=== PATIENT | female | born 1945 | race Hispanic/Latino ===

== ENCOUNTER 2019-07-25 13:44 | Emergency (ER) | payer OTHER ==
[2019-07-25 14:46] LABS: BASOPHILS % (AUTO) 0.8 % (0.0-5.0); EOSINOPHILS % (AUTO) 2.1 % (0.0-8.0); HEMATOCRIT 41.4 % (36-48); LYMPHOCYTES % (AUTO) 18.5 % (21.0-51.0); MEAN CORPUSCULAR HEMOGLOBIN 31.8 pg (27.0-33.0); MEAN CORPUSCULAR HGB CONC 34.1 g/dL (32.0-36.0); MEAN CORPUSCULAR VOLUME 93.5 fL (79-99); MONOCYTES % (AUTO) 6.8 % (3.0-13.0); NEUTROPHILS % (AUTO) 71.5 % (40.0-77.0); PLATELET COUNT (AUTO) 172 K/uL (130-400); RED BLOOD CELL COUNT(AUTO) 4.43 MIL/uL (4.00-5.50); WHITE BLOOD COUNT (AUTO) 7.5 K/uL (4.8-10.8)
[2019-07-25 15:02] LABS: INR 1.01 (0.85-1.15); PARTIAL THROMBOPLASTIN TIME 24.5 SEC (26.3-35.5); PROTHROMBIN TIME 10.6 SEC (9.6-11.6)
[2019-07-25 15:45] LABS: POTASSIUM 3.3 mmol/L (3.5-5.1)
[2019-07-25 15:49] LABS: ALBUMIN 3.1 g/dL (3.5-5.0); BILIRUBIN,DIRECT 0.4 mg/dL (0.0-0.3); BILIRUBIN,TOTAL 1.7 mg/dL (0.2-1.0); TOTAL PROTEIN, SERUM 7.5 g/dL (6.0-8.3)
[2019-07-25] MEDS ORDERED: MECLIZINE HCL 25 MG TABLET ONE (16:02)
[2019-07-25] MEDS ORDERED: ONDANSETRON HCL 4 MG/2 ML VIAL ONE (16:03)
== END 2019-07-25 18:32 | disposition home or self-care (01) ==
LOC: EDH 13:44
DX: H81.399 Other peripheral vertigo, unspecified ear (principal); G44.89 Other headache syndrome; R11.2 Nausea with vomiting, unspecified; I10 Essential (primary) hypertension; E11.9 Type 2 diabetes mellitus without complications; R79.1 Abnormal coagulation profile; Z90.49 Acquired absence of other specified parts of digestive tract; Z98.890 Other specified postprocedural states
CPT/HCPCS: 36415; 70450; 70551; 71045; 80048; 80076; 82550; 83605; 84484; 85025; 85610; 85730; 93005; 96374; 99284; J2405

== ENCOUNTER → 2019-08-12 | Outpatient (CLI) | payer OTHER | END | disposition home or self-care (01) | LOC: SLP 20:06 | PROVIDERS: ATTEND Family Medicine | DX: G47.33 Obstructive sleep apnea (adult) (pediatric) (principal); I10 Essential (primary) hypertension; E11.9 Type 2 diabetes mellitus without complications | CPT/HCPCS: 95810 ==

== ENCOUNTER → 2019-09-02 | Outpatient (CLI) | payer OTHER | END | disposition home or self-care (01) | LOC: SLP 19:38 | PROVIDERS: ATTEND Family Medicine | DX: G47.33 Obstructive sleep apnea (adult) (pediatric) (principal) | CPT/HCPCS: 95811 ==

== ENCOUNTER 2019-11-26 02:41 | Emergency (ER) | payer OTHER ==
[2019-11-26] MEDS ORDERED: SODIUM CHLORIDE 0.9% 1000ML 1,000 ML IV ONE (02:42)
[2019-11-26] MEDS ORDERED: ONDANSETRON HCL 4 MG/2 ML VIAL ONE (03:10)
[2019-11-26 03:17] LABS: BASOPHILS % (AUTO) 0.7 % (0.0-5.0); EOSINOPHILS % (AUTO) 2.1 % (0.0-8.0); HEMATOCRIT 38.3 % (36-48); LYMPHOCYTES % (AUTO) 18.2 % (21.0-51.0); MEAN CORPUSCULAR HEMOGLOBIN 33.2 pg (27.0-33.0); MEAN CORPUSCULAR HGB CONC 35.8 g/dL (32.0-36.0); MEAN CORPUSCULAR VOLUME 92.7 fL (79-99); MONOCYTES % (AUTO) 7.2 % (3.0-13.0); NEUTROPHILS % (AUTO) 71.5 % (40.0-77.0); PLATELET COUNT (AUTO) 146 K/uL (130-400); RED BLOOD CELL COUNT(AUTO) 4.13 MIL/uL (4.00-5.50); RED CELL DISTRIBUTION WIDTH 12.9 % (11.0-15.5); WHITE BLOOD COUNT (AUTO) 9.2 K/uL (4.8-10.8)
[2019-11-26 03:22] LABS: CREATININE 1.2 mg/dL (0.5-1.5); POTASSIUM 3.1 mmol/L (3.5-5.1)
[2019-11-26 03:28] LABS: TOTAL PROTEIN, SERUM 7.2 g/dL (6.0-8.3)
[2019-11-26 03:41] LABS: B-TYPE NATRIURETIC PEPTIDE 19 pg/mL (0-100)
[2019-11-26 03:42] LABS: INR 0.96 (0.85-1.15); PARTIAL THROMBOPLASTIN TIME 23.6 SEC (26.3-35.5); PROTHROMBIN TIME 10.4 SEC (9.6-11.6)
[2019-11-26] MEDS ORDERED: DiphenhydrAMINE HCL 50 MG/ML VIAL ONE (03:49)
[2019-11-26 04:22] LABS: APPEARANCE,URINE CLEAR (CLEAR); BILIRUBIN,URINE NEGATIVE (NEGATIVE); COLOR,URINE YELLOW (YELLOW); GLUCOSE, URINE (UA) NEGATIVE (NEGATIVE); KETONES,URINE NEGATIVE (NEGATIVE); LEUKOCYTE ESTERASE ,URINE SMALL (NEGATIVE); NITRATE,URINE POSITIVE (NEGATIVE); OCCULT BLOOD,URINE TRACE-INTACT (NEGATIVE); PH,URINE 6.5 (5.0-8.0); PROTEIN,URINE NEGATIVE (NEGATIVE)
[2019-11-26 04:46] LABS: BACTERIA,URINE Moderate /HPF (None Seen); RBC,URINE 0-1 /HPF (0-1)
[2019-11-26] MEDS ORDERED: CEFTRIAXONE SODIUM 1 GM ONE (05:32)
[2019-11-26] MEDS ORDERED: MECLIZINE HCL 25 MG TABLET ONE (05:32)
== END 2019-11-26 06:24 | disposition home or self-care (01) ==
LOC: EDH 02:41
DX: H81.10 Benign paroxysmal vertigo, unspecified ear (principal); E86.9 Volume depletion, unspecified; R82.71 Bacteriuria; E11.9 Type 2 diabetes mellitus without complications; I10 Essential (primary) hypertension; Z98.890 Other specified postprocedural states; Z90.49 Acquired absence of other specified parts of digestive tract
CPT/HCPCS: 36415; 70450; 71045; 80053; 81001; 82550; 83880; 84484; 85025; 85610; 85730; 87077; 87088; 87186; 93005; 96361; 96374; 96375; 99284; J0696; J1200; J2405; J7030

== ENCOUNTER 2023-05-17 10:33 | Emergency (ER) | payer OTHER ==
[~2023-05-17] VITALS: Ht 167.6 cm; Wt 74.8 kg
[~2023-05-17 10:33] MED LIST: FAMO20TA8 PO; HYDR25TA PO; KETO120S13 TP; LACT PO; LATA2.5D14 OU; LEVO750T68 PO; LISI1TAB51 PO; METF-444 PO; POLY10DR5 OP; SERT-439 PO; TIMO.5OS OU
[2023-05-17 11:00] LABS: BASOPHILS # (AUTO) 0.04 K/uL (0.00-0.20); BASOPHILS % (AUTO) 0.6 % (0.0-5.0); EOSINOPHILS % (AUTO) 1.4 % (0.0-8.0); IMMATURE GRANULOCYTE ABSOLUTE 0.03 K/uL (0-1); LYMPHOCYTES # (AUTO) 1.2 K/uL (1.0-4.8); LYMPHOCYTES % (AUTO) 17.3 % (21.0-51.0); MEAN CORPUSCULAR HEMOGLOBIN 33.2 pg (27.0-33.0); MEAN CORPUSCULAR HGB CONC 34.8 g/dL (32.0-36.0); MEAN CORPUSCULAR VOLUME 95.4 fL (79-99); MONOCYTES # (AUTO) 0.7 K/uL (0.1-1.0); MONOCYTES % (AUTO) 9.6 % (3.0-13.0); NEUTROPHILS % (AUTO) 70.7 % (40.0-77.0); PLATELET COUNT (AUTO) 135 K/uL (130-400); RED BLOOD CELL COUNT(AUTO) 3.46 MIL/uL (4.00-5.50); RED CELL DISTRIBUTION WIDTH 13.6 % (11.0-15.5)
[2023-05-17] MEDS ORDERED: LACT10SO9 PO ×2 (11:02→12:11)
[2023-05-17] MEDS ORDERED: PANT40TA54 PO (11:09)
[2023-05-17] MEDS ORDERED: LISI1TAB53 PO (11:09)
[2023-05-17] MEDS ORDERED: AEC81 PO (11:09)
[2023-05-17] MEDS ORDERED: FLUO20CA36 PO (11:09)
[2023-05-17] MEDS ORDERED: ERGO500093 PO (11:09)
[2023-05-17] MEDS ORDERED: METF-444 PO (11:09)
[2023-05-17 11:11] LABS: CREATININE 1.4 mg/dL (0.5-1.5); POTASSIUM 4.2 mmol/L (3.5-5.1)
[2023-05-17 11:16] LABS: ALBUMIN 2.7 g/dL (3.5-5.0); BILIRUBIN,TOTAL 3.4 mg/dL (0.2-1.0); TOTAL PROTEIN, SERUM 7.3 g/dL (6.0-8.3)
[2023-05-17 11:58] LABS: APPEARANCE,URINE CLEAR (CLEAR); BILIRUBIN,URINE NEGATIVE (NEGATIVE); COLOR,URINE LIGHT-YELLOW (YELLOW); GLUCOSE, URINE (UA) NEGATIVE (NEGATIVE); KETONES,URINE NEGATIVE (NEGATIVE); LEUKOCYTE ESTERASE ,URINE NEGATIVE Leu/uL (NEGATIVE); NITRATE,URINE NEGATIVE (NEGATIVE); OCCULT BLOOD,URINE NEGATIVE (NEGATIVE); PH,URINE 6.5 (5.0-8.0); PROTEIN,URINE NEGATIVE (NEGATIVE); UROBILINOGEN,URINE 6 mg/dL (0.2-1.0)
[2023-05-17 11:59] LABS: ADD UA MICROSCOPIC YES
[2023-05-17 12:00] LABS: BACTERIA,URINE RARE /HPF (None Seen); MUCUS,URINE RARE LPF (None Seen); SQUAMOUS EPITHELIAL CELL,UR RARE /HPF (0-2); WBC,URINE 0-1 /HPF (0-1)
[2023-05-17 12:28] LABS: INR 1.02 (0.85-1.15); PROTHROMBIN TIME 11.8 SEC (9.6-11.6)
[2023-05-17 12:29] LABS: PARTIAL THROMBOPLASTIN TIME 25.6 SEC (26.3-35.5)
[2023-05-17] MEDS ORDERED: LACTULOSE 20 GM/30 ML UDCUP PO ONE (12:30)
[2023-05-17 12:56] LABS: INFLUENZA TYPE A Negative For Type A (NEGATIVE); INFLUENZA TYPE B Negative For Type B (NEGATIVE)
[2023-05-17 12:57] LABS: COVID19 (SARS ANTIGEN RAPID) PRESUMPTIVE NEGATIVE (NEGATIVE)
[2023-05-17 15:49] VITALS: BP 158/72; PULSE 66; RESP 20; O2SAT 98
== END 2023-05-17 15:50 | disposition home or self-care (01) ==
LOC: EDH 10:33
DX: K74.60 Unspecified cirrhosis of liver (principal); E72.29 Other disorders of urea cycle metabolism; R53.1 Weakness; E11.9 Type 2 diabetes mellitus without complications; E78.00 Pure hypercholesterolemia, unspecified; I10 Essential (primary) hypertension; Z79.82 Long term (current) use of aspirin; Z79.84 Long term (current) use of oral hypoglycemic drugs; Z79.899 Other long term (current) drug therapy; Z20.822 Contact with and (suspected) exposure to COVID-19
CPT/HCPCS: 36415; 80053; 81001; 82140; 85025; 85610; 85730; 87426; 87804; 93005

== ENCOUNTER 2023-09-10 09:12 | Inpatient (IN) | payer OTHER ==
[~2023-09-10] VITALS: Ht 154.9 cm; Wt 92.5 kg
[~2023-09-10 09:12] MED LIST changes: +AEC81 PO; +ERGO500093 PO; -FAMO20TA8 PO; +FLUO20CA36 PO; -HYDR25TA PO; -KETO120S13 TP; -LACT PO; +LACT10SO9 PO; -LEVO750T68 PO; -LISI1TAB51 PO; +LISI1TAB53 PO; +PANT40TA54 PO; -POLY10DR5 OP
[2023-09-10 09:39] LABS: BASOPHILS # (AUTO) 0.06 K/uL (0.00-0.20); BASOPHILS % (AUTO) 0.7 % (0.0-5.0); EOSINOPHILS # (AUTO) 0.18 K/uL (0.00-0.70); EOSINOPHILS % (AUTO) 2.1 % (0.0-8.0); HEMATOCRIT 33.8 % (36-48); IMMATURE GRANULOCYTE ABSOLUTE 0.04 K/uL (0-1); LYMPHOCYTES # (AUTO) 2.3 K/uL (1.0-4.8); LYMPHOCYTES % (AUTO) 26.1 % (21.0-51.0); MEAN CORPUSCULAR HEMOGLOBIN 33.4 pg (27.0-33.0); MEAN CORPUSCULAR HGB CONC 34.6 g/dL (32.0-36.0); MEAN CORPUSCULAR VOLUME 96.6 fL (79-99); MONOCYTES # (AUTO) 0.6 K/uL (0.1-1.0); MONOCYTES % (AUTO) 7.4 % (3.0-13.0); NEUTROPHILS # (AUTO) 5.5 K/uL (1.8-7.7); NEUTROPHILS % (AUTO) 63.2 % (40.0-77.0); PLATELET COUNT (AUTO) 151 K/uL (130-400); RED CELL DISTRIBUTION WIDTH 13.9 % (11.0-15.5); WHITE BLOOD COUNT (AUTO) 8.7 K/uL (4.8-10.8)
[2023-09-10 09:50] LABS: CREATININE 1.4 mg/dL (0.5-1.5); POTASSIUM 3.4 mmol/L (3.5-5.1)
[2023-09-10 09:56] LABS: ALBUMIN 2.6 g/dL (3.5-5.0); BILIRUBIN,TOTAL 2.1 mg/dL (0.2-1.0); TOTAL PROTEIN, SERUM 7.2 g/dL (6.0-8.3)
[2023-09-10] MEDS: ALBUTEROL 0.083% 2.5 MG/3 ML INH IH ONE (10:07)
[2023-09-10 10:10] VITALS: PULSE 80; RESP 18
[2023-09-10 10:22] LABS: COVID19 (SARS ANTIGEN RAPID) PRESUMPTIVE NEGATIVE (NEGATIVE); INFLUENZA TYPE A Negative For Type A (NEGATIVE); INFLUENZA TYPE B Negative For Type B (NEGATIVE)
[2023-09-10 11:03] LABS: APPEARANCE,URINE CLOUDY (CLEAR); BILIRUBIN,URINE NEGATIVE (NEGATIVE); COLOR,URINE YELLOW (YELLOW); GLUCOSE, URINE (UA) NEGATIVE (NEGATIVE); KETONES,URINE NEGATIVE (NEGATIVE); LEUKOCYTE ESTERASE ,URINE NEGATIVE Leu/uL (NEGATIVE); NITRATE,URINE NEGATIVE (NEGATIVE); OCCULT BLOOD,URINE NEGATIVE (NEGATIVE); PH,URINE 6.5 (5.0-8.0); PROTEIN,URINE NEGATIVE (NEGATIVE); UROBILINOGEN,URINE 3 mg/dL (0.2-1.0)
[2023-09-10 11:15] LABS: ADD UA MICROSCOPIC YES
[2023-09-10 11:17] LABS: BACTERIA,URINE MANY /HPF (None Seen); MUCUS,URINE RARE LPF (None Seen); SQUAMOUS EPITHELIAL CELL,UR RARE /HPF (0-2)
[2023-09-10] MEDS ORDERED: ONDANSETRON 4MG INJ IVP PRN (13:00)
[2023-09-10] MEDS ORDERED: POTASSIUM CHLORIDE 20MEQ/100ML 100 ML IV PRN (13:00)
[2023-09-10] MEDS ORDERED: ACETAMINOPHEN 325 MG TAB PO PRN (13:00)
[2023-09-10] MEDS: CEFTRIAXONE 1G VIAL IVPB SCH (13:52)
[2023-09-10] MEDS ORDERED: LACTULOSE 20 GM/30 ML UDCUP PO PRN (15:00)
[2023-09-10] MEDS: POTASSIUM CHLORIDE 10% ELIXIR 20 MEQ/15 ML UDCUP PO PRN (17:29)
[2023-09-10] MEDS: LACTULOSE 20 GM/30 ML UDCUP PO SCH (17:30)
[2023-09-10 20:00] VITALS: BP 147/64; PULSE 78; RESP 20; O2SAT 97
[2023-09-10] MEDS: RIFAXIMIN 550 MG TABLET PO SCH (20:07)
[2023-09-11] VITALS (9 sets, daily range): BP systolic 115–139; BP diastolic 60–76; PULSE 63–79; RESP 16–21; O2SAT 98–100
[2023-09-11 09:00] LABS: BASOPHILS # (AUTO) 0.05 K/uL (0.00-0.20); BASOPHILS % (AUTO) 0.8 % (0.0-5.0); EOSINOPHILS % (AUTO) 3.1 % (0.0-8.0); HEMATOCRIT 33.1 % (36-48); IMMATURE GRANULOCYTE ABSOLUTE 0.01 K/uL (0-1); LYMPHOCYTES # (AUTO) 1.8 K/uL (1.0-4.8); LYMPHOCYTES % (AUTO) 27.5 % (21.0-51.0); MEAN CORPUSCULAR HEMOGLOBIN 33.7 pg (27.0-33.0); MEAN CORPUSCULAR VOLUME 96.2 fL (79-99); MONOCYTES # (AUTO) 0.6 K/uL (0.1-1.0); MONOCYTES % (AUTO) 9.7 % (3.0-13.0); NEUTROPHILS # (AUTO) 3.8 K/uL (1.8-7.7); NEUTROPHILS % (AUTO) 58.7 % (40.0-77.0); PLATELET COUNT (AUTO) 120 K/uL (130-400); RED BLOOD CELL COUNT(AUTO) 3.44 MIL/uL (4.00-5.50); RED CELL DISTRIBUTION WIDTH 14.2 % (11.0-15.5); WHITE BLOOD COUNT (AUTO) 6.5 K/uL (4.8-10.8)
[2023-09-11 09:14] LABS: ALBUMIN 2.5 g/dL (3.5-5.0); BILIRUBIN,TOTAL 2.4 mg/dL (0.2-1.0); CREATININE 1.4 mg/dL (0.5-1.5); POTASSIUM 3.5 mmol/L (3.5-5.1); TOTAL PROTEIN, SERUM 7.1 g/dL (6.0-8.3)
[2023-09-11] MEDS ORDERED: SERTRALINE HCL 50 MG TABLET PO SCH (21:00)
[2023-09-11] MEDS: SERTRALINE HCL 50 MG TABLET PO SCH (21:17)
[2023-09-11] MEDS: LATANOPROST 2.5 ML DROPS OU SCH (21:18)
[2023-09-11] MEDS: TIMOLOL MALEATE 0.5% 5 ML BOTTLE OU SCH (21:18)
[2023-09-12] VITALS (8 sets, daily range): BP systolic 111–137; BP diastolic 50–65; PULSE 67–75; RESP 16–21; O2SAT 98
[2023-09-12 05:42] LABS: BASOPHILS # (AUTO) 0.06 K/uL (0.00-0.20); BASOPHILS % (AUTO) 0.9 % (0.0-5.0); EOSINOPHILS # (AUTO) 0.23 K/uL (0.00-0.70); EOSINOPHILS % (AUTO) 3.3 % (0.0-8.0); IMMATURE GRANULOCYTE ABSOLUTE 0.02 K/uL (0-1); MEAN CORPUSCULAR HEMOGLOBIN 33.5 pg (27.0-33.0); MEAN CORPUSCULAR HGB CONC 34.2 g/dL (32.0-36.0); MEAN CORPUSCULAR VOLUME 97.9 fL (79-99); MONOCYTES # (AUTO) 0.7 K/uL (0.1-1.0); MONOCYTES % (AUTO) 9.7 % (3.0-13.0); NEUTROPHILS % (AUTO) 56.8 % (40.0-77.0); PLATELET COUNT (AUTO) 119 K/uL (130-400); RED BLOOD CELL COUNT(AUTO) 3.37 MIL/uL (4.00-5.50); RED CELL DISTRIBUTION WIDTH 14.3 % (11.0-15.5)
[2023-09-12 06:00] LABS: ALBUMIN 2.3 g/dL (3.5-5.0); BILIRUBIN,TOTAL 1.7 mg/dL (0.2-1.0); CREATININE 1.5 mg/dL (0.5-1.5); MAGNESIUM 1.8 mg/dL (1.80-2.40); POTASSIUM 3.8 mmol/L (3.5-5.1); TOTAL PROTEIN, SERUM 6.5 g/dL (6.0-8.3)
[2023-09-12] MEDS: LISINOPRIL 20 MG TABLET PO SCH (10:05)
[2023-09-12] MEDS: MAGNESIUM 2GM PREMIX 50ML 50 ML IV PRN (10:05)
[2023-09-12] MEDS: PANTOPRAZOLE 40 MG TAB DR PO SCH (10:05)
[2023-09-12] MEDS: ASPIRIN 81 MG EC TAB PO SCH (10:05)
[2023-09-13] VITALS (7 sets, daily range): BP systolic 97–112; BP diastolic 40–64; PULSE 69–76; RESP 17–21; O2SAT 97–99
[2023-09-13 05:28] LABS: BASOPHILS # (AUTO) 0.06 K/uL (0.00-0.20); BASOPHILS % (AUTO) 0.8 % (0.0-5.0); EOSINOPHILS # (AUTO) 0.27 K/uL (0.00-0.70); EOSINOPHILS % (AUTO) 3.5 % (0.0-8.0); HEMATOCRIT 30.6 % (36-48); IMMATURE GRANULOCYTE ABSOLUTE 0.03 K/uL (0-1); LYMPHOCYTES # (AUTO) 2.4 K/uL (1.0-4.8); LYMPHOCYTES % (AUTO) 30.8 % (21.0-51.0); MEAN CORPUSCULAR HEMOGLOBIN 33.6 pg (27.0-33.0); MEAN CORPUSCULAR HGB CONC 35.3 g/dL (32.0-36.0); MEAN CORPUSCULAR VOLUME 95.3 fL (79-99); MONOCYTES # (AUTO) 0.7 K/uL (0.1-1.0); MONOCYTES % (AUTO) 8.8 % (3.0-13.0); NEUTROPHILS # (AUTO) 4.3 K/uL (1.8-7.7); NEUTROPHILS % (AUTO) 55.7 % (40.0-77.0); PLATELET COUNT (AUTO) 121 K/uL (130-400); RED BLOOD CELL COUNT(AUTO) 3.21 MIL/uL (4.00-5.50); RED CELL DISTRIBUTION WIDTH 13.8 % (11.0-15.5); WHITE BLOOD COUNT (AUTO) 7.8 K/uL (4.8-10.8)
[2023-09-13 05:57] LABS: ALBUMIN 2.2 g/dL (3.5-5.0); BILIRUBIN,TOTAL 1.6 mg/dL (0.2-1.0); CREATININE 1.3 mg/dL (0.5-1.5); MAGNESIUM 2.1 mg/dL (1.80-2.40); POTASSIUM 3.8 mmol/L (3.5-5.1); TOTAL PROTEIN, SERUM 6.3 g/dL (6.0-8.3)
[2023-09-13] MEDS: KCL 20 MEQ ERTAB PO PRN (10:44)
[2023-09-14] VITALS: BP 113/59; PULSE 72; RESP 18
[2023-09-14 04:00] VITALS: BP 101/54; PULSE 65; RESP 18
[2023-09-14 05:07] LABS: BASOPHILS # (AUTO) 0.08 K/uL (0.00-0.20); BASOPHILS % (AUTO) 1.2 % (0.0-5.0); EOSINOPHILS # (AUTO) 0.27 K/uL (0.00-0.70); EOSINOPHILS % (AUTO) 4.1 % (0.0-8.0); HEMATOCRIT 30.3 % (36-48); IMMATURE GRANULOCYTE ABSOLUTE 0.02 K/uL (0-1); LYMPHOCYTES % (AUTO) 30.4 % (21.0-51.0); MEAN CORPUSCULAR HGB CONC 34.7 g/dL (32.0-36.0); MEAN CORPUSCULAR VOLUME 98.1 fL (79-99); MONOCYTES # (AUTO) 0.7 K/uL (0.1-1.0); MONOCYTES % (AUTO) 10.1 % (3.0-13.0); NEUTROPHILS # (AUTO) 3.5 K/uL (1.8-7.7); NEUTROPHILS % (AUTO) 53.9 % (40.0-77.0); RED BLOOD CELL COUNT(AUTO) 3.09 MIL/uL (4.00-5.50); WHITE BLOOD COUNT (AUTO) 6.6 K/uL (4.8-10.8)
[2023-09-14 05:15] LABS: CREATININE 1.7 mg/dL (0.5-1.5)
[2023-09-14 05:19] LABS: ALBUMIN 2.1 g/dL (3.5-5.0); BILIRUBIN,TOTAL 1.3 mg/dL (0.2-1.0); MAGNESIUM 2.2 mg/dL (1.80-2.40); TOTAL PROTEIN, SERUM 6.1 g/dL (6.0-8.3)
[2023-09-14 05:40] LABS: PLATELET COUNT (AUTO) 84 K/uL (130-400)
[2023-09-14 08:00] VITALS: BP 105/49; PULSE 60; RESP 18; O2SAT 100
[2023-09-14 12:00] VITALS: BP 99/57; PULSE 70; RESP 20
[2023-09-14 16:00] VITALS: BP 120/61; PULSE 74; RESP 20
[2023-09-14 20:00] VITALS: BP 107/61; PULSE 80; RESP 18; O2SAT 92
[2023-09-15] VITALS (8 sets, daily range): BP systolic 75–127; BP diastolic 34–65; PULSE 60–73; RESP 16–20; O2SAT 98–99
[2023-09-15 05:19] LABS: BASOPHILS # (AUTO) 0.06 K/uL (0.00-0.20); BASOPHILS % (AUTO) 0.8 % (0.0-5.0); EOSINOPHILS % (AUTO) 4.1 % (0.0-8.0); HEMATOCRIT 29.2 % (36-48); IMMATURE GRANULOCYTE ABSOLUTE 0.03 K/uL (0-1); LYMPHOCYTES % (AUTO) 26.8 % (21.0-51.0); MEAN CORPUSCULAR HEMOGLOBIN 33.6 pg (27.0-33.0); MEAN CORPUSCULAR HGB CONC 34.6 g/dL (32.0-36.0); MONOCYTES # (AUTO) 0.8 K/uL (0.1-1.0); MONOCYTES % (AUTO) 10.8 % (3.0-13.0); NEUTROPHILS # (AUTO) 4.2 K/uL (1.8-7.7); NEUTROPHILS % (AUTO) 57.1 % (40.0-77.0); PLATELET COUNT (AUTO) 140 K/uL (130-400); RED BLOOD CELL COUNT(AUTO) 3.01 MIL/uL (4.00-5.50); RED CELL DISTRIBUTION WIDTH 14.2 % (11.0-15.5); WHITE BLOOD COUNT (AUTO) 7.3 K/uL (4.8-10.8)
[2023-09-15 05:42] LABS: ALBUMIN 2.1 g/dL (3.5-5.0); BILIRUBIN,TOTAL 1.1 mg/dL (0.2-1.0); CREATININE 1.8 mg/dL (0.5-1.5); MAGNESIUM 2.2 mg/dL (1.80-2.40); POTASSIUM 3.8 mmol/L (3.5-5.1); TOTAL PROTEIN, SERUM 6.1 g/dL (6.0-8.3)
[2023-09-16] VITALS (7 sets, daily range): BP systolic 91–105; BP diastolic 47–53; PULSE 55–77; RESP 16–18; O2SAT 98–100
[2023-09-16] MEDS: CEFTRIAXONE 1G VIAL IVPB SCH (11:31)
[2023-09-17] VITALS (9 sets, daily range): BP systolic 96–122; BP diastolic 50–65; PULSE 54–68; RESP 16–20; O2SAT 100
[2023-09-17 06:04] LABS: MEAN CORPUSCULAR HEMOGLOBIN 33.7 pg (27.0-33.0); MEAN CORPUSCULAR HGB CONC 34.7 g/dL (32.0-36.0); MEAN CORPUSCULAR VOLUME 97.1 fL (79-99); RED BLOOD CELL COUNT(AUTO) 3.09 MIL/uL (4.00-5.50); RED CELL DISTRIBUTION WIDTH 14.5 % (11.0-15.5); WHITE BLOOD COUNT (AUTO) 6.7 K/uL (4.8-10.8)
[2023-09-17 06:11] LABS: CREATININE 1.8 mg/dL (0.5-1.5); POTASSIUM 3.8 mmol/L (3.5-5.1)
[2023-09-18] VITALS (7 sets, daily range): BP systolic 94–124; BP diastolic 39–66; PULSE 60–102; RESP 18–20; O2SAT 100
[2023-09-18 05:12] LABS: BASOPHILS # (AUTO) 0.06 K/uL (0.00-0.20); EOSINOPHILS % (AUTO) 4.9 % (0.0-8.0); HEMATOCRIT 29.1 % (36-48); IMMATURE GRANULOCYTE ABSOLUTE 0.02 K/uL (0-1); LYMPHOCYTES # (AUTO) 1.9 K/uL (1.0-4.8); LYMPHOCYTES % (AUTO) 30.9 % (21.0-51.0); MEAN CORPUSCULAR HEMOGLOBIN 33.9 pg (27.0-33.0); MEAN CORPUSCULAR HGB CONC 33.7 g/dL (32.0-36.0); MEAN CORPUSCULAR VOLUME 100.7 fL (79-99); MONOCYTES # (AUTO) 0.6 K/uL (0.1-1.0); NEUTROPHILS # (AUTO) 3.2 K/uL (1.8-7.7); NEUTROPHILS % (AUTO) 52.9 % (40.0-77.0); PLATELET COUNT (AUTO) 132 K/uL (130-400); RED BLOOD CELL COUNT(AUTO) 2.89 MIL/uL (4.00-5.50); RED CELL DISTRIBUTION WIDTH 14.3 % (11.0-15.5); WHITE BLOOD COUNT (AUTO) 6.1 K/uL (4.8-10.8)
[2023-09-18 05:30] LABS: BILIRUBIN,TOTAL 1.1 mg/dL (0.2-1.0); CREATININE 1.5 mg/dL (0.5-1.5); MAGNESIUM 1.8 mg/dL (1.80-2.40); POTASSIUM 3.9 mmol/L (3.5-5.1); TOTAL PROTEIN, SERUM 5.7 g/dL (6.0-8.3)
[2023-09-18] MEDS: CLOTRIMAZOLE 30 GM CREAM.GM. TP SCH (21:00)
[2023-09-19] VITALS (7 sets, daily range): BP systolic 99–123; BP diastolic 40–58; PULSE 52–67; RESP 16–18; O2SAT 100
[2023-09-19 06:21] LABS: BASOPHILS # (AUTO) 0.06 K/uL (0.00-0.20); EOSINOPHILS # (AUTO) 0.26 K/uL (0.00-0.70); EOSINOPHILS % (AUTO) 4.5 % (0.0-8.0); HEMATOCRIT 30.4 % (36-48); IMMATURE GRANULOCYTE ABSOLUTE 0.02 K/uL (0-1); LYMPHOCYTES # (AUTO) 1.8 K/uL (1.0-4.8); LYMPHOCYTES % (AUTO) 30.7 % (21.0-51.0); MEAN CORPUSCULAR HEMOGLOBIN 34.2 pg (27.0-33.0); MEAN CORPUSCULAR HGB CONC 33.9 g/dL (32.0-36.0); MONOCYTES # (AUTO) 0.6 K/uL (0.1-1.0); MONOCYTES % (AUTO) 10.1 % (3.0-13.0); NEUTROPHILS # (AUTO) 3.1 K/uL (1.8-7.7); NEUTROPHILS % (AUTO) 53.4 % (40.0-77.0); PLATELET COUNT (AUTO) 97 K/uL (130-400); RED BLOOD CELL COUNT(AUTO) 3.01 MIL/uL (4.00-5.50); RED CELL DISTRIBUTION WIDTH 14.4 % (11.0-15.5); WHITE BLOOD COUNT (AUTO) 5.8 K/uL (4.8-10.8)
[2023-09-19 06:33] LABS: ALBUMIN 2.1 g/dL (3.5-5.0); BILIRUBIN,TOTAL 1.2 mg/dL (0.2-1.0); CREATININE 1.7 mg/dL (0.5-1.5); MAGNESIUM 2.2 mg/dL (1.80-2.40); POTASSIUM 3.9 mmol/L (3.5-5.1)
[2023-09-20 03:00] VITALS: BP 93/44; PULSE 61; RESP 18
[2023-09-20 05:19] LABS: BASOPHILS # (AUTO) 0.05 K/uL (0.00-0.20); BASOPHILS % (AUTO) 0.8 % (0.0-5.0); EOSINOPHILS # (AUTO) 0.23 K/uL (0.00-0.70); EOSINOPHILS % (AUTO) 3.7 % (0.0-8.0); HEMATOCRIT 30.6 % (36-48); IMMATURE GRANULOCYTE ABSOLUTE 0.01 K/uL (0-1); LYMPHOCYTES # (AUTO) 1.9 K/uL (1.0-4.8); LYMPHOCYTES % (AUTO) 30.9 % (21.0-51.0); MEAN CORPUSCULAR HEMOGLOBIN 33.1 pg (27.0-33.0); MEAN CORPUSCULAR VOLUME 100.3 fL (79-99); MONOCYTES # (AUTO) 0.6 K/uL (0.1-1.0); MONOCYTES % (AUTO) 10.1 % (3.0-13.0); NEUTROPHILS # (AUTO) 3.3 K/uL (1.8-7.7); NEUTROPHILS % (AUTO) 54.3 % (40.0-77.0); PLATELET COUNT (AUTO) 125 K/uL (130-400); RED BLOOD CELL COUNT(AUTO) 3.05 MIL/uL (4.00-5.50); RED CELL DISTRIBUTION WIDTH 14.1 % (11.0-15.5); WHITE BLOOD COUNT (AUTO) 6.1 K/uL (4.8-10.8)
[2023-09-20 05:46] LABS: ALBUMIN 2.1 g/dL (3.5-5.0); BILIRUBIN,TOTAL 1.2 mg/dL (0.2-1.0); CREATININE 1.4 mg/dL (0.5-1.5); POTASSIUM 4.1 mmol/L (3.5-5.1); TOTAL PROTEIN, SERUM 6.1 g/dL (6.0-8.3)
[2023-09-20 08:00] VITALS: BP 112/58; PULSE 60; RESP 20
[2023-09-20 12:00] VITALS: BP 90/51; PULSE 63; RESP 18
[2023-09-20 16:00] VITALS: BP 102/56; PULSE 74; RESP 20
[2023-09-20 19:00] VITALS: BP 107/53; PULSE 65; RESP 20
[2023-09-20] MEDS: CLOBETASOL PROPIONATE 0.05% CR 60 GM CRM TP SCH (20:50)
[2023-09-20 23:00] VITALS: BP 100/34; PULSE 70; RESP 20
[2023-09-21] VITALS (7 sets, daily range): BP systolic 82–108; BP diastolic 40–57; PULSE 62–68; RESP 18–21; O2SAT 98–100
[2023-09-22] VITALS (7 sets, daily range): BP systolic 100–110; BP diastolic 46–60; PULSE 59–68; RESP 15–20; O2SAT 98
[2023-09-23] VITALS (7 sets, daily range): BP systolic 92–142; BP diastolic 50–68; PULSE 65–79; RESP 17–20; O2SAT 99–100
[2023-09-23 05:07] LABS: BASOPHILS # (AUTO) 0.04 K/uL (0.00-0.20); BASOPHILS % (AUTO) 0.6 % (0.0-5.0); EOSINOPHILS # (AUTO) 0.24 K/uL (0.00-0.70); EOSINOPHILS % (AUTO) 3.8 % (0.0-8.0); HEMATOCRIT 29.3 % (36-48); IMMATURE GRANULOCYTE ABSOLUTE 0.01 K/uL (0-1); LYMPHOCYTES # (AUTO) 1.7 K/uL (1.0-4.8); MEAN CORPUSCULAR HEMOGLOBIN 33.7 pg (27.0-33.0); MEAN CORPUSCULAR HGB CONC 33.4 g/dL (32.0-36.0); MEAN CORPUSCULAR VOLUME 100.7 fL (79-99); MONOCYTES # (AUTO) 0.5 K/uL (0.1-1.0); MONOCYTES % (AUTO) 8.5 % (3.0-13.0); NEUTROPHILS # (AUTO) 3.9 K/uL (1.8-7.7); NEUTROPHILS % (AUTO) 60.9 % (40.0-77.0); PLATELET COUNT (AUTO) 114 K/uL (130-400); RED BLOOD CELL COUNT(AUTO) 2.91 MIL/uL (4.00-5.50); RED CELL DISTRIBUTION WIDTH 14.3 % (11.0-15.5); WHITE BLOOD COUNT (AUTO) 6.3 K/uL (4.8-10.8)
[2023-09-23 05:33] LABS: BILIRUBIN,TOTAL 1.1 mg/dL (0.2-1.0); CREATININE 1.5 mg/dL (0.5-1.5); MAGNESIUM 1.8 mg/dL (1.80-2.40); POTASSIUM 4.1 mmol/L (3.5-5.1); TOTAL PROTEIN, SERUM 5.9 g/dL (6.0-8.3)
[2023-09-23] MEDS: LISINOPRIL 10 MG TABLET PO SCH (08:39)
[2023-09-24 03:46] VITALS: BP 117/51; PULSE 61; RESP 17
[2023-09-24 06:08] LABS: HEMATOCRIT 29.6 % (36-48); MEAN CORPUSCULAR HEMOGLOBIN 33.6 pg (27.0-33.0); MEAN CORPUSCULAR HGB CONC 33.8 g/dL (32.0-36.0); MEAN CORPUSCULAR VOLUME 99.3 fL (79-99); RED BLOOD CELL COUNT(AUTO) 2.98 MIL/uL (4.00-5.50); RED CELL DISTRIBUTION WIDTH 14.1 % (11.0-15.5); WHITE BLOOD COUNT (AUTO) 6.5 K/uL (4.8-10.8)
[2023-09-24 06:18] LABS: CREATININE 1.5 mg/dL (0.5-1.5); MAGNESIUM 1.8 mg/dL (1.80-2.40); POTASSIUM 3.9 mmol/L (3.5-5.1)
[2023-09-24 08:00] VITALS: BP 158/75; PULSE 65; RESP 20
[2023-09-24 10:24] VITALS: O2SAT 100
[2023-09-24 12:00] VITALS: BP 125/61; PULSE 66; RESP 20
[2023-09-24 16:00] VITALS: BP 122/62; PULSE 65; RESP 18
== END 2023-09-24 18:29 | DRG 872 ==
LOC: EDH 09:12 → EDHIP 13:09 → 3DH 15:59
PROVIDERS: ADMIT Internal Medicine Infectious Disease; ATTEND Internal Medicine Infectious Disease
DX: A41.50 Gram-negative sepsis, unspecified (principal); N39.0 Urinary tract infection, site not specified; Z20.822 Contact with and (suspected) exposure to COVID-19; K74.60 Unspecified cirrhosis of liver; K76.82 Hepatic encephalopathy; E11.9 Type 2 diabetes mellitus without complications; G47.33 Obstructive sleep apnea (adult) (pediatric); E87.6 Hypokalemia; B96.1 Klebsiella pneumoniae [K. pneumoniae] as the cause of diseases classified elsewhere; R53.81 Other malaise; E66.01 Morbid (severe) obesity due to excess calories; F32.A Depression, unspecified; B35.8 Other dermatophytoses; H91.93 Unspecified hearing loss, bilateral; I10 Essential (primary) hypertension; Z83.3 Family history of diabetes mellitus; Z87.440 Personal history of urinary (tract) infections; Z68.38 Body mass index [BMI] 38.0-38.9, adult; Z79.84 Long term (current) use of oral hypoglycemic drugs
CPT/HCPCS: 36415; 71045; 80048; 80053; 81001; 82140; 82948; 83605; 83690; 83735; 84484; 85025; 85027; 87077; 87088; 87186; 87420; 87426; 87804; 87880; 93005; 94640; G0378; J0696; J3475

== ENCOUNTER 2024-07-24 09:46 | Observation (INO) | payer OTHER, MEDICARE ==
[~2024-07-24] VITALS: Ht 170.2 cm; Wt 109.0 kg
[~2024-07-24 09:46] MED LIST changes: +FLUO-418 PO; -FLUO20CA36 PO; +FURO40TA5 PO; -METF-444 PO; +RIFA550T PO; -SERT-439 PO; -TIMO.5OS OU
[2024-07-24 10:10] LABS: BASOPHILS # (AUTO) 0.03 K/uL (0.00-0.20); BASOPHILS % (AUTO) 0.5 % (0.0-5.0); EOSINOPHILS # (AUTO) 0.19 K/uL (0.00-0.70); EOSINOPHILS % (AUTO) 3.1 % (0.0-8.0); HEMATOCRIT 34.2 % (36-48); IMMATURE GRANULOCYTE ABSOLUTE 0.01 K/uL (0-1); LYMPHOCYTES # (AUTO) 1.8 K/uL (1.0-4.8); LYMPHOCYTES % (AUTO) 28.5 % (21.0-51.0); MEAN CORPUSCULAR HEMOGLOBIN 32.1 pg (27.0-33.0); MEAN CORPUSCULAR HGB CONC 33.6 g/dL (32.0-36.0); MEAN CORPUSCULAR VOLUME 95.5 fL (79-99); MONOCYTES # (AUTO) 0.6 K/uL (0.1-1.0); MONOCYTES % (AUTO) 9.7 % (3.0-13.0); NEUTROPHILS # (AUTO) 3.6 K/uL (1.8-7.7); PLATELET COUNT (AUTO) 125 K/uL (130-400); RED BLOOD CELL COUNT(AUTO) 3.58 MIL/uL (4.00-5.50); RED CELL DISTRIBUTION WIDTH 14.9 % (11.0-15.5); WHITE BLOOD COUNT (AUTO) 6.2 K/uL (4.8-10.8)
--- NOTE | 2024-07-24 10:11 | EKG ---
[facility] Test Date: 2024-07-24 Test Time: 10:07:33 Pat Name: NAPOLEON IGLESIAS Department: [facility] Room: ED Gender: F Legal Support Assistant: [id number] : 1945 Requested By: IVETTE WOODS Order Number: [id number] Reading MD: Jason Chaparro Measurements Intervals [place] Rate: 77 P: 62 MT: 144 QRS: 65 QRSD: 104 T: 9 QT: 442 QTc: 499 Interpretive Statements Sinus rhythm Compared to ECG 05/19/2024 17:08:31 Myocardial infarct finding no longer present Electronically Signed On 07-24-2024 12:24:52 VOCATIONAL EXAMINER by Jason Chaparro Please click the below link to view image of tracing.
[2024-07-24 10:15] LABS: CREATININE 1.3 mg/dL (0.5-1.0); POTASSIUM 4.7 mmol/L (3.5-5.1)
--- NOTE | 2024-07-24 10:26 | ERN ---
ED Note History of Present Illness Stated Complaint: AMS Chief Complaint: Altered Mental Status Time Seen by MD: 09:47 Dictation: This is a case of a 78-year-old female with a past medical history of depression, liver cirrhosis who was brought to the ER by EMS with complaints of altered mental status. According to the EMS the patient had several similar episodes in the past secondary to high serum ammonia levels. Patient is drowsy, opens eyes on touch, making incoherent sounds with the Estela coma scale approximately 11. Allergies: Coded Allergies: No Known Drug Allergies (Unverified Allergy, Unknown, 11/26/19) Home Meds Active Scripts Sulfamethoxazole/Trimethoprim (Bactrim Ds Tablet) 800 Mg-160 Mg Tablet, 1 TAB PO BID for 7 Days, #14 TAB 0 Refills Prov:MARILYN JEAN 07/25/24 Lactulose (Lactulose) 20 Gram/30 Ml Solution, 20 GM PO TID, #60 ML 2 Refills Prov:RADHA ALDANA 05/17/23 Reported Medications Rifaximin (Xifaxan) 550 Mg Tablet, 1 TAB PO BID 02/26/24 Furosemide (Furosemide) 40 Mg Tablet, 1 TAB PO DAILY 02/26/24 Fluoxetine HCl (Fluoxetine HCl) 20 Mg Capsule, 20 MG PO DAILY, CAP 05/17/23 Pantoprazole Sodium (Pantoprazole Sodium) 40 Mg Tablet.dr, 40 MG PO DAILY, TAB 05/17/23 Discontinued Reported Medications Lisinopril/Hydrochlorothiazide (Lisinopril-Hctz 20-25 mg Tab) 20 Mg-25 Mg Tablet, 1 EACH PO DAILY, TAB 05/17/23 Ergocalciferol (Vitamin D2) (Vitamin D2) 1,250 Mcg (68254 Unit) Capsule, 1250 MCG PO QWEEK, CAP 05/17/23 Aspirin (ASPIRIN 81 MG ECTAB) 81 Mg Ectab, 81 MG PO DAILY, TAB.EC 05/17/23 Latanoprost (Latanoprost) 2.5 Ml Drops, 1 DROP OU HS 03/11/23 Past Medical History Past Medical History: Depression, Other Additional Past Medical Hx: LIVER CIRRHOSIS Surgical History: Unknown Social History: Negative Review of System Dictation ROS Constitutional: No appetite loss, No fevers, chills , No night sweats, No weakness, fatigue Eye: No vision change, No redness, pain or discharge ENT: No hearing loss, ear pain or discharge, No nose bleeds, No sore throat, Neck: No swelling. pain or stiffness Respiratory: No cough, shortness of breath, wheezing Cardiovascular: No chest pain,, palpitations, dyspnea, No edema Gastrointestinal: No abdominal pain, No nausea, vomiting, No diarrhea, constipation Genitourinary: No painful urination, No blood in urine, No urinary incontinence, No frequency or urgency Musculoskeletal: No joint pain, muscle pain, swelling or stiffness Neurological: No numbness, tingling, No weakness, tremors or seizures Psychiatric: : No depression, No anxiety, No sleep disturbance, No Memory changes Lymphatic: No easy bruising, No bleeding tendencies , No swollen lymph nodes A 13-point Review of Systems was assessed, all of which are negative except for HPI or as indicated above. Not able to get a proper history from the patient due to altered mental state Initial Vital Sign VS Vital Signs Date Time Temp Pulse Resp B/P (MAP) Pulse Ox O2 Delivery O2 Flow Rate FiO2 07/24/24 09:58 98.4 79 16 158/83 100 Room Air 0 07/24/24 09:59 21 Physical Exam Dictation General: Drowsy, No acute distress. EENT: No conjunctival redness or discharge noted Tympanic membranes are clear, Normal hearing, Oral mucosa is moist, No pharyngeal erythema, No nasal discharge, No oral lesions. Neck: Non-tender, No jugular vein distention, No lymphadenopathy, No thyromegaly, Supple. Respiratory: Mild bilateral crackles, Respirations are non-labored, Breath sounds are equal, No chest wall tenderness, Cardiovascular: Normal rate, Normal rhythm, No murmur, Good pulses equal in all extremities, Normal peripheral perfusion, bilateral lower extremity pitting edema Gastrointestinal: Soft, Non-tender, Non-distended, Normal bowel sounds Musculoskeletal: Normal range of motion, Normal strength, No tenderness, No swelling, No deformity, Normal gait. Neurologic: Drowsy Results (Laboratory/Radiology) Laboratory/Radiology Laboratory Tests Test 07/24/24 09:57 07/24/24 10:51 07/24/24 12:31 07/24/24 16:24 White Blood Count 6.2 K/uL (4.8-10.8) Red Blood Count 3.58 MIL/uL (4.00-5.50) L Hemoglobin 11.5 g/dL (12.0-16.0) L Hematocrit 34.2 % (36-48) L Mean Corpuscular Volume 95.5 fL (79-99) Mean Corpuscular Hemoglobin 32.1 pg (27.0-33.0) Mean Corpuscular Hemoglobin Concent 33.6 g/dL (32.0-36.0) Red Cell Distribution Width 14.9 % (11.0-15.5) Platelet Count 125 K/uL (130-400) L Mean Platelet Volume 9.5 fL (7.5-10.5) Immature Granulocyte % (Auto) 0.2 % (0-1) Neutrophils (%) (Auto) 58.0 % (40.0-77.0) Lymphocytes (%) (Auto) 28.5 % (21.0-51.0) Monocytes (%) (Auto) 9.7 % (3.0-13.0) Eosinophils (%) (Auto) 3.1 % (0.0-8.0) Basophils (%) (Auto) 0.5 % (0.0-5.0) Neutrophils # (Auto) 3.6 K/uL (1.8-7.7) Lymphocytes # (Auto) 1.8 K/uL (1.0-4.8) Monocytes # (Auto) 0.6 K/uL (0.1-1.0) Eosinophils # (Auto) 0.19 K/uL (0.00-0.70) Basophils # (Auto) 0.03 K/uL (0.00-0.20) Absolute Immature Granulocyte (auto 0.01 K/uL (0-1) Nucleated Red Blood Cells 0.0 % (0.0-0.19) Sodium Level 143 mmol/L (136-145) Potassium Level 4.7 mmol/L (3.5-5.1) Chloride Level 108 mmol/L (101-111) Carbon Dioxide Level 31 mmol/L (21-32) Blood Urea Nitrogen 21 mg/dL (7-18) H Creatinine 1.3 mg/dL (0.5-1.0) H Glomerular Filtration Rate Calc 43 mL/min (>90) Random Glucose 104 mg/dL (70-105) Total Calcium 9.6 mg/dL (8.5-10.1) Total Bilirubin 2.7 mg/dL (0.2-1.0) H Direct Bilirubin 0.3 mg/dL (0.0-0.3) Aspartate Amino Transf (AST/SGOT) 58 U/L (10-37) H Alanine Aminotransferase (ALT/SGPT) 23 U/L (12-78) Alkaline Phosphatase 223 U/L (50-136) H Ammonia 124 umol/L (11-32) *H Troponin I High Sensitivity 16 ng/L (4-50) 16.1 ng/L (4-50) B-Type Natriuretic Peptide 119 pg/mL (0-100) H Total Protein 7.2 g/dL (6.0-8.3) Albumin 2.6 g/dL (3.5-5.0) L Influenza Type A Antigen Negative For Type A Influenza Type B Antigen Negative For Type B SARS-CoV-2 Antigen (Rapid) PRESUMPTIVE NEGATIVE Group A Streptococcus Rapid negative (NEGATIVE) Total Creatine Kinase 89 U/L (21-232) # Whole Blood Glucose 87 MG/DL (70-110) Test 07/24/24 17:50 07/24/24 20:19 07/24/24 23:49 07/25/24 03:27 Total Creatine Kinase 84 U/L (21-232) 77 U/L (21-232) Troponin I High Sensitivity 19.0 ng/L (4-50) 22.2 ng/L (4-50) Whole Blood Glucose 158 MG/DL (70-110) #H Urine Color YELLOW (YELLOW) Urine Appearance CLOUDY (CLEAR) H Urine pH 6.0 (5.0-8.0) Urine Specific [place] 1.020 (1.001-1.031) Urine Protein 10 mg/dL (NEGATIVE) H Urine Glucose (UA) NEGATIVE mg/dL (NEGATIVE) Urine Ketones NEGATIVE mg/dL (NEGATIVE) Urine Occult Blood MODERATE (NEGATIVE) H Urine Nitrate NEGATIVE (NEGATIVE) Urine Bilirubin NEGATIVE mg/dL (NEGATIVE) Urine Urobilinogen 0.2 mg/dL (0.2-1.0) Urine Leukocyte Esterase 250 Adan/uL (NEGATIVE) H Urine RBC 6-10 /HPF (0-1) H Urine WBC 26-50 /HPF (0-1) H Urine Squamous Epithelial Cells MOD /HPF (0-2) Urine Bacteria RARE /HPF (None Seen) Urine Opiates Screen NEGATIVE (NEGATIVE) Urine Barbiturates Screen NEGATIVE (NEGATIVE) Urine Phencyclidine Screen NEGATIVE (NEGATIVE) Urine Amphetamines Screen NEGATIVE (NEGATIVE) Urine Benzodiazepines Screen NEGATIVE (NEGATIVE) Urine Cocaine Screen NEGATIVE (NEGATIVE) Urine Marijuana (THC) Screen NEGATIVE (NEGATIVE) Test 07/25/24 04:56 07/25/24 05:38 07/25/24 11:48 Whole Blood Glucose 98 MG/DL (70-110) 157 MG/DL (70-110) #H White Blood Count 5.6 K/uL (4.8-10.8) Red Blood Count 3.46 MIL/uL (4.00-5.50) L Hemoglobin 11.0 g/dL (12.0-16.0) L Hematocrit 34.0 % (36-48) L Mean Corpuscular Volume 98.3 fL (79-99) Mean Corpuscular Hemoglobin 31.8 pg (27.0-33.0) Mean Corpuscular Hemoglobin Concent 32.4 g/dL (32.0-36.0) Red Cell Distribution Width 14.9 % (11.0-15.5) Platelet Count 112 K/uL (130-400) L Mean Platelet Volume 9.2 fL (7.5-10.5) Immature Granulocyte % (Auto) 0.4 % (0-1) Neutrophils (%) (Auto) 56.7 % (40.0-77.0) Lymphocytes (%) (Auto) 24.7 % (21.0-51.0) Monocytes (%) (Auto) 11.8 % (3.0-13.0) Eosinophils (%) (Auto) 5.5 % (0.0-8.0) Basophils (%) (Auto) 0.9 % (0.0-5.0) Neutrophils # (Auto) 3.2 K/uL (1.8-7.7) Lymphocytes # (Auto) 1.4 K/uL (1.0-4.8) Monocytes # (Auto) 0.7 K/uL (0.1-1.0) Eosinophils # (Auto) 0.31 K/uL (0.00-0.70) Basophils # (Auto) 0.05 K/uL (0.00-0.20) Absolute Immature Granulocyte (auto 0.02 K/uL (0-1) Nucleated Red Blood Cells 0.0 % (0.0-0.19) Prothrombin Time 11.5 SEC (9.6-11.6) Prothromb Time International Ratio 1.03 (0.85-1.15) Phosphorus Level 3.1 mg/dL (2.5-4.9) Magnesium Level 2.00 mg/dL (1.80-2.40) Ammonia 47 umol/L (11-32) #H Lactate Dehydrogenase 244 U/L (81-234) H B-Type Natriuretic Peptide 189 pg/mL (0-100) H Procalcitonin 0.07 ng/mL (0.05-0.5) EKG Comment: PROCEDURE: EKG - 12 LEAD EKG TRACING- TECHNICAL [facility] Test Date: 2024-07-24 Test Time: 10:07:33 Pat Name: NAPOLEON IGLESIAS Department: [facility] Room: Gender: Female Help Desk Support Specialist: [id number] : 1945 Requested By: IVETTE WOODS Order Number: [id number] Reading MD: Measurements Intervals [place] Rate: 77 P: 62 HI: 144 QRS: 65 QRSD: 104 T: 9 QT: 442 QTc: 499 Interpretive Statements Sinus rhythm No previous ECG available for comparison X-RAY Comment: PROCEDURE: CXR1VW - CHEST 1VW CHEST 1VW REASON: wheezing COMPARISON: 05/19/2024 FINDINGS: There is myocardial megaly. There is pulmonary vascular congestion. Peripheral portions of the lungs are clear. B stomach and bony thorax appear unremarkable. IMPRESSION: 1. Cardiomegaly with mild pulmonary vascular congestion. CT Scan Comment: PROCEDURE: HEAD WO - CT HEAD/BRAIN W/O CONTRAST Exam: NONCONTRAST CT BRAIN REASON: Altered mental status. COMPARISON: 02/25/2024 TECHNIQUE: Images are obtained from vertex to the skull base. The exam was performed without IV contrast. FINDINGS: There are generous ventricles and sulci. There is decreased attenuation in the deep central white matter. These findings are consistent with atrophy. There are no acute appearing focal parenchymal lesions. There is no evidence of mass, intracranial hemorrhage or acute stroke. Posterior fossa and brainstem structures appear unremarkable. There are no abnormal fluid collections. Extra cranial soft tissues appear unremarkable as well. IMPRESSION: 1. Atrophy, no acute finding. CT was performed with one or more following dose reduction techniques: automated exposure control, adjustment of the mA and kv according to patient's size, or use of a iterative reconstruction technique. ED Course ED Course Orders Procedure Category Date Status Time Cbc With Differential LAB 07/24/24 Complete 09:58 Basic Metabolic Panel LAB 07/24/24 Complete 09:58 Troponin I High LAB 07/24/24 Complete Sensitivity 09:58 Ammonia LAB 07/24/24 Complete 09:58 Hepatic Function Panel LAB 07/24/24 Complete 10:01 Chest 1vw RAD 07/24/24 Resulted 10:01 12 Lead Ekg Tracing- EKG 07/24/24 Resulted Technical 10:01 Ct Head/Brain W/O CT 07/24/24 Resulted Contrast 10:01 B-Type Natriuretic LAB 07/24/24 Complete Peptide 09:58 Lactulose 20 Gm/30 Ml PHA 07/24/24 Complete Udcup (Constulose 10:30 Vital Signs Every 4 CPOE 07/24/24 Transmitted Hours 10:35 Daily Weights CPOE 07/24/24 Transmitted 10:35 I&O Q Shift CPOE 07/24/24 Transmitted 10:35 Cbc With Differential LAB 07/25/24 Complete 04:00 Magnesium LAB 07/25/24 Complete 04:00 Phosphorus LAB 07/25/24 Complete 04:00 Procalcitonin LAB 07/25/24 Complete 04:00 Lactate Dehydrogenase LAB 07/25/24 Complete 04:00 Prothrombin Time With LAB 07/25/24 Complete INR 04:00 Cardiac Panel LAB 07/24/24 Complete 10:35 Cardiac Panel LAB 07/24/24 Complete 16:35 Cardiac Panel LAB 07/24/24 Complete 22:35 Ammonia LAB 07/25/24 Complete 04:00 B-Type Natriuretic LAB 07/25/24 Complete Peptide 04:00 Folic Acid 1 Mg PHA 07/25/24 In Process Tablet (Folic Acid 1 09:00 Thiamine Hcl (Vitamin PHA 07/25/24 In Process B-1) 09:00 Lactulose 20 Gm/30 Ml PHA 07/24/24 In Process Udcup (Constulose 11:00 Apply Scds CPOE 07/24/24 Transmitted 10:35 Admit Orders ADM 07/24/24 Transmitted 10:35 Condition: CPOE 07/24/24 Transmitted 10:35 Initiate ERWIN 07/24/24 In Process Hyperglycemia Protoco 10:35 Chest 1vw RAD 07/25/24 Resulted 06:00 Pantoprazole 40mg Inj PHA 07/24/24 In Process (Protonix 40mg Inj 21:00 Lactulose 20 Gm/30 Ml PHA 07/24/24 Complete Udcup (Constulose 11:00 Influenza Type A & B, LAB 07/24/24 Complete Rapid 10:43 Covid19 (Sars Antigen LAB 07/24/24 Complete Rapid) 10:43 Rapid (Group A Strep) LAB 07/24/24 Complete 10:43 Ceftriaxone 2gm Vial PHA 07/24/24 In Process (Rocephin 2gm Inj) 11:00 Furosemide 40 Mg PHA 07/25/24 In Process Tablet (Lasix 40mg 09:00 Rifaximin (Xifaxan) PHA 07/24/24 In Process 21:00 Admit Orders ADM 07/24/24 Transmitted 10:47 Urinalysis Profile LAB 07/24/24 Complete 17:16 Culture Urine CATARINA 07/24/24 In Process 17:21 Fall Precautions CPOE 07/24/24 Transmitted 17:30 Aspiration Precautions CPOE 07/24/24 Transmitted 17:30 Heart Healthy Diet DIET 07/25/24 Transmitted Breakfast Neuro Checks Q4x24, CPOE 07/24/24 Transmitted Then Qs 17:43 Ondansetron 4mg Inj PHA 07/24/24 In Process (Zofran 4mg Inj) 18:00 Pt Eval And Treat PT 07/24/24 Transmitted 17:45 Case Management 07/24/24 Transmitted Evaluation 17:45 Drug Screen Urine LAB 07/24/24 Complete 17:16 Us Abd Limited/Abd US 07/24/24 Resulted Wall 17:29 *General Dc DS 07/25/24 Transmitted Instructions 14:16 *Nursing CPOE 07/25/24 Transmitted Communication: 15:37 Change To Observation CM 07/25/24 Transmitted Status 16:11 Current Medications Medications (Trade) Dose Ordered Sig/Aby Route PRN Reason Start Time Stop Time Status Last Admin Dose Admin Lactulose (Constulose 20gm/ 30ml Udcup) 20 gm ONCE ONCE PO 07/24/24 10:30 07/24/24 10:31 DC Vital Signs Date Time Temp Pulse Resp B/P (MAP) Pulse Ox O2 Delivery O2 Flow Rate FiO2 07/25/24 12:00 98.4 69 20 138/61 100 Room Air 07/25/24 08:40 97 Room Air* 0 07/25/24 08:00 98.4 64 20 154/69 97 Room Air 07/25/24 04:22 97.9 64 20 138/77 99 Room Air 07/24/24 23:54 98.8 67 19 147/68 100 Room Air 07/24/24 20:35 98.1 77 20 151/71 100 Room Air 07/24/24 20:00 Room Air* 0 07/24/24 16:00 98.4 72 19 142/72 100 Room Air 07/24/24 13:20 94 Room Air* 0 07/24/24 13:20 97.9 72 19 153/76 100 Room Air 07/24/24 12:37 98.4 76 18 152/71 98 Room Air* 0 07/24/24 09:59 76 18 161/72 99 Room Air* 0 07/24/24 09:58 98.4 79 16 158/83 100 Room Air 0 Medical Decision Making [facility] MDM Potential differential diagnoses include: Metabolic encephalopathy Uremia Electrolyte disturbances Intracranial hemorrhage UTI Pneumonia Assessment: I will order a CBC and CMP and administer medications according to the patient's complaint. Will order CT head, chest x-ray, EKG. I will re-evaluate the patient after treatment and diagnostic exams have returned to determine whether they require further testing, can be safely discharged home, or need admission for further treatment and evaluation. Given the social determinants of health affecting care, including literacy, access to medical care, prescription drug management, and [id number] drugs, I will ensure that treatment plans are tailored accordingly. Revaluation : Patient is drowsy. Labs hemoglobin 11.5, BUN 21, creatinine 1.3, AST 58, alkaline phosphatase 223. Ammonia level is 124. Chest x-ray resulted in cardiomegaly with mild pulmonary congestion. CT head resulted in no acute findings. EKG resulted in sinus rhythm. Disposition: Patient will be admitted for further workup and management in view of hepatic encephalopathy and LIVAN. DX & DISP Disposition: Inpatient Departure Impression: Primary Impression: Hepatic encephalopathy Additional Impression: Hyperammonemia Critical Time: 30 minutes (Critical Care Procedure NoteAuthorized and Performed by: meTotal critical care time: Approximately 36 minutesDue to a high probability of clinically significant, life threatening deterioration, the patient required my highest level of preparedness to intervene emergently and I personally spent this critical care time directly and personally managing the patient. This critical care time included obtaining a history; examining the patient; pulse oximetry; ordering and review of studies; arranging urgent treatment with development of a management plan; evaluation of patient's response to treatment; frequent reassessment; and, discussions with other providers.This critical care time was performed to assess and manage the high probability of imminent, life-threatening deterioration that could result in multi-organ failure. It was exclusive of separately billable procedures and treating other patients and teaching time.Please see MDM section and the rest of the note for further information on patient assessment and treatment.) Condition: Stable Scripts Sulfamethoxazole/Trimethoprim (Bactrim Ds Tablet) 800 Mg-160 Mg Tablet 1 TAB PO BID for 7 Days, #14 TAB 0 Refills Prov: MARILYN JEAN 07/25/24 Referrals: KAMLESH GAGNON MD (PCP) ATTESTATION BY PHYSICIAN I performed a substantive portion of the visit. I have reviewed and personally made and approve the management plan that is documented in the notes by myself with MAX/resident. I acknowledged full responsibility for the patient's management plan. 78-year-old female brought in by EMS with a GCS of 11, altered mental status of unknown etiology. History cirrhosis, suspicion for hepatic encephalopathy. Found to have elevated ammonia. Started on lactulose. Rest of the workup is unremarkable. Admitted. IVETTE TOUSSAINT MD Jul 24, 2024 10:25 CATRACHITO MATHEWS DO Jul 25, 2024 17:15
[2024-07-24 10:27] LABS: ALBUMIN 2.6 g/dL (3.5-5.0); BILIRUBIN,DIRECT 0.3 mg/dL (0.0-0.3); BILIRUBIN,TOTAL 2.7 mg/dL (0.2-1.0); TOTAL PROTEIN, SERUM 7.2 g/dL (6.0-8.3)
[2024-07-24 10:52] LABS: B-TYPE NATRIURETIC PEPTIDE 119 pg/mL (0-100)
--- NOTE | 2024-07-24 10:56 | HMCIMG ---
Exam: NONCONTRAST CT BRAIN REASON: Altered mental status. COMPARISON: 02/25/2024 TECHNIQUE: Images are obtained from vertex to the skull base. The exam was performed without IV contrast. FINDINGS: There are generous ventricles and sulci. There is decreased attenuation in the deep central white matter. These findings are consistent with atrophy. There are no acute appearing focal parenchymal lesions. There is no evidence of mass, intracranial hemorrhage or acute stroke. Posterior fossa and brainstem structures appear unremarkable. There are no abnormal fluid collections. Extra cranial soft tissues appear unremarkable as well. IMPRESSION: 1. Atrophy, no acute finding. CT was performed with one or more following dose reduction techniques: automated exposure control, adjustment of the mA and kv according to patient's size, or use of a iterative reconstruction technique.
--- NOTE | 2024-07-24 10:57 | HMCIMG ---
CHEST 1VW REASON: wheezing COMPARISON: 05/19/2024 FINDINGS: There is myocardial megaly. There is pulmonary vascular congestion. Peripheral portions of the lungs are clear. B stomach and bony thorax appear unremarkable. IMPRESSION: 1. Cardiomegaly with mild pulmonary vascular congestion.
[2024-07-24] MEDS: LACTULOSE 20 GM/30 ML UDCUP PO SCH (11:00)
[2024-07-24 11:26] LABS: RAPID GROUP A STREP negative (NEGATIVE)
[2024-07-24 11:39] LABS: COVID19 (SARS ANTIGEN RAPID) PRESUMPTIVE NEGATIVE (NEGATIVE)
[2024-07-24 11:46] LABS: INFLUENZA TYPE A Negative For Type A (NEGATIVE); INFLUENZA TYPE B Negative For Type B (NEGATIVE)
[2024-07-24] MEDS: LACTULOSE 20 GM/30 ML UDCUP PO ONE (11:47)
[2024-07-24] MEDS: CEFTRIAXONE 2GM VIAL IVPB SCH (11:48)
[2024-07-24] MEDS: LACTULOSE 20 GM/30 ML UDCUP PR ONE (11:48)
[2024-07-24 13:20] VITALS: BP 153/76; PULSE 72; RESP 19; TEMP 97.9; O2SAT 94
--- NOTE | 2024-07-24 13:20 | NUR ---
ARRIVAL PATIENT ARRIVED TO FLOOR VIA STRETCHER. NO S/S OF DISTRESS NOTED. PATIENT WITH EYES CLOSED, UNABLE TO FOLLOW COMMANDS AT THIS TIME. HOME MEDICATIONS ENTERED. PENDING RECONCILIATION. NO FAMILY AT BEDSIDE. ORDERS TO BE REVIEWED AND CARRIED OUT.
[2024-07-24 16:00] VITALS: BP 142/72; PULSE 72; RESP 19; TEMP 98.4
--- NOTE | 2024-07-24 17:11 | HP ---
[facility] HISTORY & PHYSICAL Date Patient Seen: Jul 24, 2024 Time of Visit: 14:00 Supervising Physician: Derek Brewer MD (Covering for Dr Ambriz) Primary Care Physician: Dr Giuliano Doshi MD Outpatient Specialists: Inpatient Consults: PROBLEM LIST: Acute on chronic hepatic encephalopathy, POA Hyperammonemia Liver cirrhosis Essential Hypertension Normocytic chronic anemia Chronic Thrombocytopenia Debility CKD stage 3 Morbid obesity Suspected undiagnosed and untreated SHAKIRA/ OHS Stage I diastolic heart failure with EF of 60-65% on 2D echo 03/11/23, not on exacerbation Hepatic steatosis Ascites HPI: This is a morbidly obese chronically ill female with a past medical history of liver cirrhosis, chronic thrombocytopenia, hepatic encephalopathy, debility, f requent UTIs, essential hypertension and CKD stage 3 who arrived to the emergency department for evaluation of altered mental status. On arrival to the emergency department blood pressure was 158/83 with a heart rate 76 respiratory rate of 16 unlabored saturating 100% on room air temperature 98.4 and GCS of 11. CT of the head was done and atrophy with no acute findings. Chest x-ray was performed in the ED and showed cardiomegaly with mild pulmonary vascular congestion. Initial lab work showed negative troponin x2. H&H of 11.5/34.2 platelet count of 125k consistent with her chronic thrombocytopenia. Chemistry BUN 21 creatinine 1.3 GFR of 43 which is consistent to previous findings consistent with a CKD stage 3. Total bili was 2.7 AST 58 alkaline phosphatase 223 with a ammonia level of 124 albumin of 2.6. Serology showed influenza A negative for influenza B negative COVID-19 negative and group a strep rapid negative. Per ED physician we will like patient admitted for encephalopathy. On assessment patient was sleeping but easily arousable to voice, she is able to follow commands but is confused. GCS of 13. She has been slightly hypertensive with a blood pressure of 153/76 heart rate in the 70s saturating 94% on room air in no apparent distress afebrile. Unable to get a history from patient due to confusion. As per daughter who was at bedside at the time of my visit patient is on lactulose 20 g 3 times a day and rifaximin at home but the last couple of days she has been refusing to take her medication. She is not sure if she has been taking it correctly. Today she was brought in due to increased altered mental status. Per daughter this is what happens when her ammonia goes up. Daughter denies patient being sick lately. She denies patient having ascites or previous paracentesis. Admit patient to medical-surgical with plans of improving ammonia levels, empirically we will cover for SBP, difficult to assess ascites due to her body habitus therefore we will order ultrasound of the abdomen to assess for ascites. PAST MEDICAL HX: UTI Hepatic encephalopathy facial dermatophytosis Debility Thrombocytopenia Liver cirrhosis Hypertension CKD stage 3 PAST SURGICAL HX: Cholecystectomy section SOCIAL HISTORY: No tobacco, ETOH, or illicit drug use Coded Allergies: No Known Drug Allergies (Unverified Allergy, Unknown, 11/26/19) REVIEW OF SYSTEMS: Unable to perform due to encephalopathy. PHYSICAL EXAM: GENERAL: Encephalopathic, GCS of 13, generalized body weakness, confused. HEENT: Sclera icteric, moist mucosa NECK: Supple, no JVD, trachea midline LUNGS: Diminished breath sounds bilaterally. No wheezes HEART: Regular rate and rhythm. Normal S1 and S2, without murmurs ABD: Morbidly obese Abdomen soft, nontender. Bowel sounds present EXT: No clubbing cyanosis or edema, + 1 bilateral pedal edema NEURO: Patient is confused, GCS of 13, no focal weakness or paresthesia. Vital Signs (last 8hr) Date Time Temp Pulse Resp B/P (MAP) Pulse Ox O2 Delivery O2 Flow Rate FiO2 07/24/24 13:20 94 Room Air* 0 21 07/24/24 13:20 97.9 72 19 153/76 100 Room Air 07/24/24 12:37 98.4 76 18 152/71 98 Room Air* 0 21 07/24/24 09:59 76 18 161/72 99 Room Air* 0 21 07/24/24 09:58 98.4 79 16 158/83 100 Room Air 0 LABS: Hematology Labs: Test 07/24/24 09:57 Range/Units White Blood Count 6.2 4.8-10.8 K/uL Red Blood Count 3.58 L 4.00-5.50 MIL/uL Hemoglobin 11.5 L 12.0-16.0 g/dL Hematocrit 34.2 L 36-48 % Mean Corpuscular Volume 95.5 79-99 fL Mean Corpuscular Hemoglobin 32.1 27.0-33.0 pg Mean Corpuscular Hemoglobin Concent 33.6 32.0-36.0 g/dL Red Cell Distribution Width 14.9 11.0-15.5 % Platelet Count 125 L 130-400 K/uL Mean Platelet Volume 9.5 7.5-10.5 fL Immature Granulocyte % (Auto) 0.2 0-1 % Neutrophils (%) (Auto) 58.0 40.0-77.0 % Lymphocytes (%) (Auto) 28.5 21.0-51.0 % Monocytes (%) (Auto) 9.7 3.0-13.0 % Eosinophils (%) (Auto) 3.1 0.0-8.0 % Basophils (%) (Auto) 0.5 0.0-5.0 % Neutrophils # (Auto) 3.6 1.8-7.7 K/uL Lymphocytes # (Auto) 1.8 1.0-4.8 K/uL Monocytes # (Auto) 0.6 0.1-1.0 K/uL Eosinophils # (Auto) 0.19 0.00-0.70 K/uL Basophils # (Auto) 0.03 0.00-0.20 K/uL Absolute Immature Granulocyte (auto 0.01 0-1 K/uL Nucleated Red Blood Cells 0.0 0.0-0.19 % Chemistry Labs: Test 07/24/24 16:24 07/24/24 12:31 07/24/24 09:57 Range/Units Whole Blood Glucose 87 70-110 MG/DL Total Creatine Kinase 89 # 21-232 U/L Troponin I High Sensitivity 16.1 4-50 ng/L Sodium Level 143 136-145 mmol/L Potassium Level 4.7 3.5-5.1 mmol/L Chloride Level 108 101-111 mmol/L Carbon Dioxide Level 31 21-32 mmol/L Blood Urea Nitrogen 21 H 7-18 mg/dL Creatinine 1.3 H 0.5-1.0 mg/dL Glomerular Filtration Rate Calc 43 >90 mL/min Random Glucose 104 70-105 mg/dL Total Calcium 9.6 8.5-10.1 mg/dL Total Bilirubin 2.7 H 0.2-1.0 mg/dL Direct Bilirubin 0.3 0.0-0.3 mg/dL Aspartate Amino Transf (AST/SGOT) 58 H 10-37 U/L Alanine Aminotransferase (ALT/SGPT) 23 12-78 U/L Alkaline Phosphatase 223 H 50-136 U/L Ammonia 124 *H 11-32 umol/L B-Type Natriuretic Peptide 119 H 0-100 pg/mL Total Protein 7.2 6.0-8.3 g/dL Albumin 2.6 L 3.5-5.0 g/dL DIAGNOSTICS / RADIOLOGY RESULTS: IMAGING REPORT Signed PATIENT: NAPOLEON IGLESIAS MR#: [id number] : 1945 SEX: F AGE: 78 LOCATION: ED ORDER 04 STATUS: REG ER REPORT#: [id number] SERVICE 00 REASON: Altered mental status ORDERING PHYSICIAN: IVETTE WOODS MD PROCEDURE: HEAD WO - CT HEAD/BRAIN W/O CONTRAST Exam: NONCONTRAST CT BRAIN REASON: Altered mental status. COMPARISON: 02/25/2024 TECHNIQUE: Images are obtained from vertex to the skull base. The exam was performed without IV contrast. FINDINGS: There are generous ventricles and sulci. There is decreased attenuation in the deep central white matter. These findings are consistent with atrophy. There are no acute appearing focal parenchymal lesions. There is no evidence of mass, intracranial hemorrhage or acute stroke. Posterior fossa and brainstem structures appear unremarkable. There are no abnormal fluid collections. Extra cranial soft tissues appear unremarkable as well. IMPRESSION: 1. Atrophy, no acute finding. CT was performed with one or more following dose reduction techniques: automated exposure control, adjustment of the mA and kv according to patient's size, or use of a iterative reconstruction technique. DICTATED BY: COLTON PENA MD DATE: 07/24/241049 ELECTRONICALLY SIGNED BY: COLTON PENA MD DATE: 07/24/24 105 Signed PATIENT: NAPOLEON IGLESIAS MR#: [id number] : 1945 SEX: F AGE: 78 LOCATION: ED ORDER 04 STATUS: REG ER [facility] REPORT#: [id number] SERVICE 00 REASON: wheezing ORDERING PHYSICIAN: IVETTE WOODS MD PROCEDURE: CXR1VW - CHEST 1VW CHEST 1VW REASON: wheezing COMPARISON: 05/19/2024 FINDINGS: There is myocardial megaly. There is pulmonary vascular congestion. Peripheral portions of the lungs are clear. B stomach and bony thorax appear unremarkable. IMPRESSION: 1. Cardiomegaly with mild pulmonary vascular congestion. DICTATED BY: COLTON PENA MD DATE: 07/24/24 105 ELECTRONICALLY SIGNED BY: COLTON PENA MD DATE: 07/24/24 105 PLAN Lactulose 20 g 3 times a day Lactulose enema x1 Resume rifaximin Monitor ammonia levels CT of the head was negative CBC CMP in a.m. UDS Assess home medication for polypharmacy and reconciled accordingly Monitor electrolytes and replenish as needed Avoid all psychoactive medications are central acting medications Fall and aspiration precautions Antiemetics and pain management PT and OT and possible inpatient rehabilitation Frequent neuro checks including pupils and motor examination Order EEG if suspecting convulsive seizure activity. NEURO: Minimize central acting medications as possible. Maintain fall precautions, adequate lighting during the day PULMONARY: Supplemental 02 as needed. Maintain aspiration precautions at all times CARDIOVASCULAR: Follow hemodynamics. Vital signs per facility protocol GI & NUTRITION: Continue with nutritional support. Continue stool softeners and laxatives as needed. KIDNEYS & ELECTROLYTES: Strict monitoring of intake, output and overall fluid balance. Avoid nephrotoxic medications to the extent possible. Medications to be dosed according to renal function. Monitor electrolytes and replace as needed ENDOCRINE: Maintain blood glucose between 100-180 at all times. Hypoglycemia protocol in place INFECTIOUS DISEASE: Trend temperature, WBC and procalcitonin level Follow cultures, deescalate antibiotics as soon as possible. Panculture if new onset fever ONCOLOGY/HEMATOLOGY/COAGULATION: Monitor for s/s of bleeding Monitor hemoglobin, coagulation studies as needed SKIN: Pressure ulcer prevention per facility protocol Specialty mattress ORTHO/REHAB: Continue PT/OT Prophylaxis: Continue GI and DVT prophylaxis Code Status: Full Resuscitation Disposition: TBD Other: Total patient care time exceeds 35 minutes excluding all procedures. CYDNEY LONGORIA Jul 24, 2024 17:11
[2024-07-24] MEDS ORDERED: ondanSETRON 4MG INJ IVP PRN (18:00)
[2024-07-24 20:35] VITALS: BP 151/71; PULSE 77; RESP 20; TEMP 98.1
[2024-07-24] MEDS: PANTOPrazole 40 MG/VIAL IVP SCH (21:03)
[2024-07-24] MEDS: RIFAXIMIN 550 MG TABLET PO SCH (21:03)
[2024-07-24 23:54] VITALS: BP 147/68; PULSE 67; RESP 19; TEMP 98.8
[2024-07-25 03:45] LABS: APPEARANCE,URINE CLOUDY (CLEAR); BILIRUBIN,URINE NEGATIVE (NEGATIVE); COLOR,URINE YELLOW (YELLOW); GLUCOSE, URINE (UA) NEGATIVE (NEGATIVE); KETONES,URINE NEGATIVE (NEGATIVE); LEUKOCYTE ESTERASE ,URINE 250 Leu/uL (NEGATIVE); NITRATE,URINE NEGATIVE (NEGATIVE); OCCULT BLOOD,URINE MODERATE (NEGATIVE); PROTEIN,URINE 10 mg/dL (NEGATIVE); UROBILINOGEN,URINE 0.2 mg/dL (0.2-1.0)
[2024-07-25 03:50] LABS: ADD UA MICROSCOPIC YES
[2024-07-25 03:53] LABS: AMPHET/METH SCREEN,URINE NEGATIVE (NEGATIVE); BARBITURATE SCREEN, URINE NEGATIVE (NEGATIVE); BENZODIAZEPINES SCREEN,URINE NEGATIVE (NEGATIVE); CANNABINOID SCREEN,URINE NEGATIVE (NEGATIVE); COCAINE SCREEN,URINE NEGATIVE (NEGATIVE); OPIATE SCREEN,URINE NEGATIVE (NEGATIVE); PHENCYCLIDINE SCREEN,URINE NEGATIVE (NEGATIVE)
[2024-07-25 03:56] LABS: BACTERIA,URINE RARE /HPF (None Seen); SQUAMOUS EPITHELIAL CELL,UR MOD /HPF (0-2); WBC,URINE 26-50 /HPF (0-1)
[2024-07-25 04:22] VITALS: BP 138/77; PULSE 64; RESP 20; TEMP 97.9
[2024-07-25 05:57] LABS: BASOPHILS # (AUTO) 0.05 K/uL (0.00-0.20); BASOPHILS % (AUTO) 0.9 % (0.0-5.0); EOSINOPHILS # (AUTO) 0.31 K/uL (0.00-0.70); EOSINOPHILS % (AUTO) 5.5 % (0.0-8.0); IMMATURE GRANULOCYTE ABSOLUTE 0.02 K/uL (0-1); LYMPHOCYTES # (AUTO) 1.4 K/uL (1.0-4.8); LYMPHOCYTES % (AUTO) 24.7 % (21.0-51.0); MEAN CORPUSCULAR HEMOGLOBIN 31.8 pg (27.0-33.0); MEAN CORPUSCULAR HGB CONC 32.4 g/dL (32.0-36.0); MEAN CORPUSCULAR VOLUME 98.3 fL (79-99); MONOCYTES # (AUTO) 0.7 K/uL (0.1-1.0); MONOCYTES % (AUTO) 11.8 % (3.0-13.0); NEUTROPHILS # (AUTO) 3.2 K/uL (1.8-7.7); NEUTROPHILS % (AUTO) 56.7 % (40.0-77.0); PLATELET COUNT (AUTO) 112 K/uL (130-400); RED BLOOD CELL COUNT(AUTO) 3.46 MIL/uL (4.00-5.50); RED CELL DISTRIBUTION WIDTH 14.9 % (11.0-15.5); WHITE BLOOD COUNT (AUTO) 5.6 K/uL (4.8-10.8)
[2024-07-25 06:08] LABS: INR 1.03 (0.85-1.15); PROTHROMBIN TIME 11.5 SEC (9.6-11.6)
[2024-07-25 06:18] LABS: B-TYPE NATRIURETIC PEPTIDE 189 pg/mL (0-100)
[2024-07-25 06:24] LABS: PHOSPHORUS 3.1 mg/dL (2.5-4.9)
[2024-07-25 08:00] VITALS: BP 154/69; PULSE 64; RESP 20; TEMP 98.5
[2024-07-25 08:40] VITALS: O2SAT 97
--- NOTE | 2024-07-25 08:45 | HMCIMG ---
ULTRASOUND ABDOMEN LIMITED INDICATION: Ascites evaluation. COMPARISON: None FINDINGS/IMPRESSION: No evidence for ascites.
--- NOTE | 2024-07-25 09:10 | HMCIMG ---
PORTABLE CHEST RADIOGRAPH INDICATION: susected sepsis COMPARISON: 07/24/2024 FINDINGS: Heart size is normal. The pulmonary vascularity and maria a appear normal. No abnormal pulmonary parenchymal opacity or consolidation identified. No significant pleural effusion noted. No pneumothorax detected. IMPRESSION: No radiographic evidence for any acute cardiopulmonary process.
[2024-07-25] MEDS: THIAMINE HCL 100 MG TABLET PO SCH (09:43)
[2024-07-25] MEDS: FOLic ACID 1 MG TABLET PO SCH (09:44)
[2024-07-25] MEDS: furoSEMIDE 40 MG TABLET PO SCH (09:44)
[2024-07-25 12:00] VITALS: BP 138/61; PULSE 69; RESP 20; TEMP 98.5
[2024-07-25] MEDS ORDERED: SULF1TAB42 PO (14:22)
--- NOTE | 2024-07-25 15:00 | NUR ---
DISCHARGE DISCHARGE ORDERS OBTAINED FOR PATIENT TO BE DISCHARGED HOME. DISCHARGE INSTRUCTIONS AND DOCUMENTATION GIVEN TO PATIENT AND DAUGHTER AT BEDSIDE. BOTH VOICED UNDERSTANDING. IV'S DISCONTINUED, CATHETERS INTACT, NO S/S OF INFECTION NOTED TO SITE. PATIENT TOLERATED WELL. BANDS REMOVED. REMOVED RECTAL TUBE PER MD'S ORDERS. PATIENT TOLERATED WELL. PENDING TRANSPORTATION ARRIVAL.
--- NOTE | 2024-07-25 16:28 | NUR ---
DISCHARGE PATIENT LEFT VIA WHEELCHAIR, ACCOMPANIED BY PROVIDER. NO S/S OF DISTRESS NOTED.
--- NOTE | 2024-07-25 20:19 | DS ---
[facility] DISCHARGE SUMMARY Date Patient Seen: Jul 25, 2024 Time of Visit: 20:14 Supervising Physician: Dr. Elian Bynum Primary Care Physician: Dr Giuliano Doshi MD Outpatient Specialists: Inpatient Consults: HOSPITAL COURSE: HPI (per admitting provider) This is a morbidly obese chronically ill female with a past medical history of liver cirrhosis, chronic thrombocytopenia, hepatic encephalopathy, debility, frequent UTIs, essential hypertension and CKD stage 3 who arrived to the emergency department for evaluation of altered mental status. On arrival to the emergency department blood pressure was 158/83 with a heart rate 76 respiratory rate of 16 unlabored saturating 100% on room air temperature 98.4 and GCS of 11. CT of the head was done and atrophy with no acute findings. Chest x-ray was performed in the ED and showed cardiomegaly with mild pulmonary vascular congestion. Initial lab work showed negative troponin x2. H&H of 11.5/34.2 platelet count of 125k consistent with her chronic thrombocytopenia. Chemistry BUN 21 creatinine 1.3 GFR of 43 which is consistent to previous findings consistent with a CKD stage 3. Total bili was 2.7 AST 58 alkaline phosphatase 223 with a ammonia level of 124 albumin of 2.6. Serology showed influenza A negative for influenza B negative COVID-19 negative and group a strep rapid negative. Per ED physician we will like patient admitted for encephalopathy. On assessment patient was sleeping but easily arousable to voice, she is able to follow commands but is confused. GCS of 13. She has been slightly hypertensive with a blood pressure of 153/76 heart rate in the 70s saturating 94% on room air in no apparent distress afebrile. Unable to get a history from patient due to confusion. As per daughter who was at bedside at the time of my visit patient is on lactulose 20 g 3 times a day and rifaximin at home but the last couple of days she has been refusing to take her medication. She is not sure if she has been taking it correctly. Today she was brought in due to increased altered mental status. Per daughter this is what happens when her ammonia goes up. Daughter denies patient being sick lately. She denies patient having ascites or previous paracentesis. Admit patient to medical-surgical with plans of improving ammonia levels, empirically we will cover for SBP, difficult to assess ascites due to her body habitus therefore we will order ultrasound of the abdomen to assess for ascites. The patient was treated for the following problems: Patient was evaluated at bedside, she is sitting comfortably, tolerating her meal, patient has received several doses of lactulose and she is currently with rectal tube with a large amount of fecal matter in the collection bag. Patient's ammonia was 47 today, down from 156 on admission, she has been advised to continue with lactulose, no further complaints at this time. Patient with the discharge with family self ambulating. ACTIVE PROBLEM LIST FOR THE HOSPITALIZATION: Acute on chronic hepatic encephalopathy, POA Hyperammonemia Liver cirrhosis Essential Hypertension Normocytic chronic anemia Chronic Thrombocytopenia Debility CHRONIC PROBLEMS: continue previous management per PCP unless otherwise indica shari CKD stage 3 Morbid obesity Suspected undiagnosed and untreated SHAKIRA/ OHS Stage I diastolic heart failure with EF of 60-65% on 2D echo 03/11/23, not on exacerbation Hepatic steatosis Ascites DATA ANALYSIS MANAGER FINDINGS/RECOMMENDATIONS: [ ] PROCEDURES: as mentioned above DISCHARGE MEDICATIONS: Pt hemodynamically stable and afebrile at time of discharge. PCP notified of patients admission, hospital course and discharge. PHYSICAL EXAM: GENERAL: Encephalopathic, GCS of 13, generalized body weakness, confused. HEENT: Sclera icteric, moist mucosa NECK: Supple, no JVD, trachea midline LUNGS: Diminished breath sounds bilaterally. No wheezes HEART: Regular rate and rhythm. Normal S1 and S2, without murmurs ABD: Morbidly obese Abdomen soft, nontender. Bowel sounds present EXT: No clubbing cyanosis or edema, + 1 bilateral pedal edema NEURO: Patient is confused, GCS of 13, no focal weakness or paresthesia. FOLLOW-UP: Follow-up with PCP in 2-3 days RECOMMENDATIONS: See Discharge Instructions This case was seen and discussed with my supervising physician. More than 30 minutes spent on discharge process, including evaluation of the patient, discussion with nursing staff, medication reconciliation and follow-up appointments MARILYN JEAN Jul 25, 2024 20:19
== END 2024-07-25 16:20 | disposition home or self-care (01) ==
LOC: EDH 09:46 → EDHIP 10:35 → INTOOBSV 10:35 → 4DH 13:20
PROVIDERS: ADMIT Internal Medicine Critical Care Medicine; ATTEND Internal Medicine Critical Care Medicine
DX: I13.0 Hypertensive heart and chronic kidney disease with heart failure and stage 1 through stage 4 chronic kidney disease, or unspecified chronic kidney disease (principal); N18.30 Chronic kidney disease, stage 3 unspecified; I50.30 Unspecified diastolic (congestive) heart failure; R18.8 Other ascites; K76.82 Hepatic encephalopathy; K74.60 Unspecified cirrhosis of liver; J18.9 Pneumonia, unspecified organism; D69.6 Thrombocytopenia, unspecified; R53.81 Other malaise; E66.01 Morbid (severe) obesity due to excess calories; K76.0 Fatty (change of) liver, not elsewhere classified; D63.1 Anemia in chronic kidney disease; N39.0 Urinary tract infection, site not specified; F32.A Depression, unspecified; R41.82 Altered mental status, unspecified; Z79.899 Other long term (current) drug therapy; Z20.822 Contact with and (suspected) exposure to COVID-19; Z98.890 Other specified postprocedural states; Z68.37 Body mass index [BMI] 37.0-37.9, adult
CPT/HCPCS: 96365; 96375; 82550 ×3; 80076; 84484 ×4; 80048; 83880 ×2; 82140 ×2; 85025 ×2; 87880; 87804 ×2; 82948 ×4; 87426; 36415 ×2; 71045 ×2; 70450; 76705; 99291; 93005; 81001; 96376; 96366; 83615; 83735; 84100; 80305; 85610; 87086; 97161; 97530; 84145; G0378 ×29; J0696 ×2; J2470 ×2

== ENCOUNTER → 2025-02-22 | Outpatient (CLI) | payer OTHER, MEDICARE ==
[~2025-02-22] MED LIST changes: -AEC81 PO; -ERGO500093 PO; -LATA2.5D14 OU; -LISI1TAB53 PO; +SULF1TAB42 PO
--- NOTE | 2025-02-23 03:05 | HMCIMG ---
EXAM: CR Right Shoulder, 2 views. CLINICAL HISTORY: Pain. COMPARISON: None provided. FINDINGS: No acute fracture or aggressive appearing osseous lesion. Mild osteopenia. Moderate osteoarthritis in the acromioclavicular and glenohumeral joints. Mild distal supraspinatus enthesopathy. IMPRESSION: No acute bony abnormality is evident. Mild osteopenia. Moderate osteoarthritis. /[place]
--- NOTE | 2025-02-23 03:06 | HMCIMG ---
EXAM: CR Right Knee, 2 views. CLINICAL HISTORY: Pain. COMPARISON: None provided. FINDINGS: No acute fracture or aggressive appearing osseous lesion. Mild osteopenia. Medial compartment predominant moderate to severe tricompartmental knee joint osteoarthritis. No suprapatellar effusion. Mild low-lying patella. Distal quadriceps and proximal patellar tendon enthesopathy. IMPRESSION: No acute bony abnormality is evident. Mild osteopenia. Medial compartment predominant moderate to severe tricompartmental knee joint osteoarthritis. /[place]
== END | disposition home or self-care (01) ==
LOC: RAH 14:37
PROVIDERS: ATTEND Internal Medicine
DX: M19.011 Primary osteoarthritis, right shoulder (principal); M17.11 Unilateral primary osteoarthritis, right knee; M85.861 Other specified disorders of bone density and structure, right lower leg; M85.811 Other specified disorders of bone density and structure, right shoulder; M76.891 Other specified enthesopathies of right lower limb, excluding foot; M25.561 Pain in right knee; M25.511 Pain in right shoulder
CPT/HCPCS: 73030; 73560

== ENCOUNTER → 2025-06-02 | Outpatient (CLI) | payer OTHER, MEDICARE ==
[2025-06-02 22:39] VITALS: PULSE 77; RESP 14
[2025-06-02 23:06] VITALS: PULSE 73; RESP 12
[2025-06-02 23:35] VITALS: PULSE 74; RESP 14
[2025-06-03] VITALS (11 sets, daily range): PULSE 70–77; RESP 10–14
== END | disposition home or self-care (01) ==
LOC: SLP 20:33
PROVIDERS: ATTEND Internal Medicine
DX: G47.33 Obstructive sleep apnea (adult) (pediatric) (principal); R06.83 Snoring; I10 Essential (primary) hypertension
CPT/HCPCS: 95810

== ENCOUNTER → 2025-06-06 | Outpatient (CLI) | payer OTHER, MEDICARE ==
[2025-06-06 21:53] VITALS: PULSE 70; RESP 14
[2025-06-06 22:30] VITALS: PULSE 68; RESP 14
[2025-06-06 23:00] VITALS: PULSE 64; RESP 14
[2025-06-06 23:30] VITALS: PULSE 68; RESP 12
[2025-06-07] VITALS (11 sets, daily range): PULSE 64–70; RESP 4–14
== END | disposition home or self-care (01) ==
LOC: SLP 20:43
PROVIDERS: ATTEND Internal Medicine
DX: G47.33 Obstructive sleep apnea (adult) (pediatric) (principal); I10 Essential (primary) hypertension
CPT/HCPCS: 95811